=== PATIENT | female | born 2000 | race African-American/Black ===

== ENCOUNTER 2020-11-19 11:30 | Inpatient (IN) | payer OTHER ==
[2020-11-19] MEDS ORDERED: ELECTROLYTE-148 SOLN 1,000 ML IV SCH (12:00)
[2020-11-19] MEDS ORDERED: AMPICILLIN - 2 GM in SODIUM CHLORIDE 100 ML IVPB ONE (12:00)
[2020-11-19 12:40] VITALS: BMI 29.5
[2020-11-19 12:53] LABS: BASO % 0.5 % (0-2.0); EOS % 0.5 % (0-4.5); HEMATOCRIT 36.3 % (32.4-45.2); HEMOGLOBIN 12.8 GM/dL (10.7-15.3); LYMPH % 13.7 % (8-40); MCH 29.9 pg (25.7-33.7); MCHC 35.2 g/dl (32.0-36.0); MEAN CELL VOLUME 84.9 fl (80-96); MEAN PLT VOLUME 8.9 fl (7.5-11.1); MONO % 7.9 % (3.8-10.2); NEUT % 77.4 % (42.8-82.8); PLATELET COUNT 212 K/MM3 (134-434); RBC 4.27 M/mm3 (3.60-5.2); RDW 13.3 % (11.6-15.6); WHITE BLOOD COUNT 13.3 K/mm3 (4.0-10.0)
[2020-11-19] MEDS ORDERED: PCA PUMP NR ONE (12:54)
[2020-11-19] MEDS ORDERED: FENTANYL/BUPIVACAINE/NS/PF - PCEA - 50 ML DISP.SYRIN EP ONE (12:54)
[2020-11-19 13:03] LABS: INR 0.95 (0.83-1.09); PROTHROMBIN TIME (PATIENT) 11.7 SEC (9.7-13.0)
[2020-11-19 13:06] LABS: ACTIVATED PTT 25.9 SECONDS (25.2-36.5)
[2020-11-19] MEDS ORDERED: NALOXONE HCL 0.4 MG/ML VIAL IVPUSH PRN (13:14)
[2020-11-19] MEDS ORDERED: FENTANYL/BUPIVACAINE/NS/PF - PCEA - 50 ML DISP.SYRIN EP SCH (13:15)
[2020-11-19 13:22] LABS: CALCIUM 8.4 mg/dL (8.5-10.1)
[2020-11-19 13:27] LABS: CREATININE 0.5 mg/dL (0.55-1.3)
[2020-11-19 14:17] LABS: HIV INTERPRETATION NEGATIVE (NEGATIVE)
[2020-11-19] MEDS ORDERED: BENZOCAINE 20% 57 GM BOTTLE TP PRN (15:36)
[2020-11-19] MEDS ORDERED: METHYLERGONOVINE MALEATE 0.2 MG/1 ML AMP IM PRN (15:36)
[2020-11-19] MEDS ORDERED: BENZOCAINE 28 GM HEMORRHOIDAL OINTMENT TP PRN (15:36)
[2020-11-19] MEDS ORDERED: WITCH HAZEL 50% (TUCKS) 40 PAD/JAR PAD TP PRN (15:36)
[2020-11-19] MEDS ORDERED: BISACODYL 10 MG SUPP.RECT RC PRN (15:36)
[2020-11-19] MEDS ORDERED: IBUPROFEN 600 MG TABLET (FP) PO PRN (15:36)
[2020-11-19] MEDS ORDERED: ACETAMINOPHEN 325 MG TABLET (FP) PO PRN (15:36)
[2020-11-19] MEDS ORDERED: OXYTOCIN 20 UNITS in 0.9% NS 20 UNIT/1,000 ML INFUS.BAG IV SCH (15:45)
[2020-11-19] MEDS ORDERED: OXYTOCIN 20 UNITS in 0.9% NS 20 UNIT/1,000 ML INFUS.BAG IV ONE (16:59)
[2020-11-19] MEDS: FERROUS SO4 325 MG TABLET (FP) PO SCH (18:27)
[2020-11-20 08:12] LABS: BASO % 0.7 % (0-2.0); EOS % 0.9 % (0-4.5); HEMATOCRIT 35.4 % (32.4-45.2); HEMOGLOBIN 12.2 GM/dL (10.7-15.3); LYMPH % 12.1 % (8-40); MCH 29.7 pg (25.7-33.7); MCHC 34.6 g/dl (32.0-36.0); MEAN CELL VOLUME 85.8 fl (80-96); MEAN PLT VOLUME 8.5 fl (7.5-11.1); MONO % 7.8 % (3.8-10.2); NEUT % 78.5 % (42.8-82.8); PLATELET COUNT 190 K/MM3 (134-434); RBC 4.13 M/mm3 (3.60-5.2); RDW 13.6 % (11.6-15.6); WHITE BLOOD COUNT 15.4 K/mm3 (4.0-10.0)
[2020-11-20] MEDS: PRENATAL VITAMINS W/ FOLIC ACID TABLET (FP) PO SCH (10:19)
[2020-11-20] MEDS: FERROUS SO4 325 MG TABLET (FP) PO SCH ×2 (10:20→18:21)
[2020-11-20] MEDS ORDERED: SENNOSIDES/DOCUSATE COMBO (SENNA PLUS) TABLET (UD) PO PRN (22:00)
[2020-11-21] MEDS: FERROUS SO4 325 MG TABLET (FP) PO SCH (08:13)
[2020-11-21 08:37] VITALS: BP 121/68; PULSE 75; TEMP 98.2
[2020-11-21] MEDS: PRENATAL VITAMINS W/ FOLIC ACID TABLET (FP) PO SCH (09:07)
[2020-11-21 13:07] LABS: URINE BARBITURATES NEGATIVE ng/ml (CUTOFF=200); URINE BENZODIAZEPINES NEGATIVE ng/ml (CUTOFF=200)
[2020-11-21 13:08] LABS: METHADONE, UR NEGATIVE ng/ml (CUTOFF=300); OPIATES, URI NEGATIVE ng/ml (CUTOFF=300); PHENCYCLIDINE,URINE NEGATIVE ng/ml (CUTOFF=25)
[2020-11-21 13:13] LABS: COCAINE, UR NEGATIVE ng/ml (CUTOFF=300); URINE AMPHETAMINES NEGATIVE ng/ml (CUTOFF=500)
== END 2020-11-21 11:15 | disposition home or self-care (01) | DRG 560 ==
LOC: JLDR 11:30 → J3W 17:40
PROVIDERS: ADMIT Obstetrics & Gynecology; ATTEND Obstetrics & Gynecology
PROC: 10E0XZZ Delivery of Products of Conception, External Approach (ICD-10-PCS; principal; 2020-11-19)
DX: O80 Encounter for full-term uncomplicated delivery (principal); Z3A.39 39 weeks gestation of pregnancy; Z37.0 Single live birth
CPT/HCPCS: 36415; 59409; 80048; 80307; 85025; 85610; 85730; 86762; 86780; 86850; 86900; 86901; 87340; 87389; C9803; U0003; U0005

== ENCOUNTER 2021-09-23 22:52 | Emergency (ER) | payer OTHER ==
[2021-09-23 23:11] VITALS: BP 119/76; PULSE 98; TEMP 98.5; BMI 26.6
[2021-09-24] MEDS ORDERED: PENICILLIN G BENZATHINE 1,200,000 UNIT/2 ML PFS IM ONE ×2 (00:05→00:11)
[2021-09-24] MEDS ORDERED: IBUPROFEN 600 MG TABLET (FP) PO ONE ×2 (00:21→00:25)
== END 2021-09-24 00:46 | disposition home or self-care (01) ==
LOC: JER 22:52
DX: J03.90 Acute tonsillitis, unspecified (principal)
CPT/HCPCS: 99284-25

== ENCOUNTER 2022-04-25 15:22 | Emergency (ER) | payer OTHER ==
[2022-04-25 16:33] VITALS: BP 123/64; PULSE 87; RESP 18; TEMP 99.6; BMI 23.3
== END 2022-04-25 19:47 | disposition home or self-care (01) ==
LOC: JER 15:22
DX: R05.1 Acute cough (principal); M79.10 Myalgia, unspecified site; J09.X2 Influenza due to identified novel influenza A virus with other respiratory manifestations
CPT/HCPCS: 0241U-QW; 71046-TC-FY; 99284-25